=== PATIENT | female | born 1975 | race Hispanic/Latino ===

== ENCOUNTER 2018-11-08 16:57 | Emergency (ER) | payer MEDICAID, OTHER ==
[2018-11-08] MEDS ORDERED: IBUPROFEN 600 MG TABLET ONE (17:23)
== END 2018-11-08 17:33 | disposition home or self-care (01) ==
LOC: EDH 16:57
DX: S80.01XA Contusion of right knee, initial encounter (principal); M70.41 Prepatellar bursitis, right knee; Z98.890 Other specified postprocedural states; W51.XXXA Accidental striking against or bumped into by another person, initial encounter; Y93.89 Activity, other specified; Y92.89 Other specified places as the place of occurrence of the external cause; Y99.0 Civilian activity done for income or pay
CPT/HCPCS: 29505; 73562

== ENCOUNTER 2022-05-04 06:19 | Day surgery (SDC) | payer OTHER ==
[2022-05-01 16:14] LABS: BASOPHILS % (AUTO) 0.3 % (0.0-5.0); EOSINOPHILS % (AUTO) 2.7 % (0.0-8.0); HEMATOCRIT 38.5 % (36-48); LYMPHOCYTES % (AUTO) 30.1 % (21.0-51.0); MEAN CORPUSCULAR HEMOGLOBIN 28.5 pg (27.0-33.0); MEAN CORPUSCULAR HGB CONC 32.2 g/dL (32.0-36.0); MEAN CORPUSCULAR VOLUME 88.5 fL (79-99); MONOCYTES % (AUTO) 6.5 % (3.0-13.0); NEUTROPHILS % (AUTO) 60.1 % (40.0-77.0); PLATELET COUNT (AUTO) 326 K/uL (130-400); RED BLOOD CELL COUNT(AUTO) 4.35 MIL/uL (4.00-5.50); RED CELL DISTRIBUTION WIDTH 13.5 % (11.0-15.5); WHITE BLOOD COUNT (AUTO) 7.7 K/uL (4.8-10.8)
[2022-05-03] MEDS: CEFAZOLIN SODIUM 1 GM VIAL IVP SCH (05:00)
[2022-05-03 11:51] VITALS: BP 157/81
[~2022-05-04] VITALS: Ht 165.1 cm; Wt 98.7 kg
[2022-05-04] VITALS (12 sets, daily range): BP systolic 130–149; BP diastolic 70–98
[~2022-05-04 06:19] MED LIST: LAMO100T16 PO; LISI40TA9 PO
[2022-05-04] MEDS ORDERED: LACTATED RINGERS 1000ML 1,000 ML IV ONE (06:38)
[2022-05-04] MEDS ORDERED: SUCCINYLCHOLINE 200MG/10ML SYR ONE (07:30)
[2022-05-04] MEDS ORDERED: PROPOFOL 10 MG/ML 20ML VIAL IV ONE (07:33)
[2022-05-04] MEDS ORDERED: MIDAZOLAM HCL 1 MG/ML 2ML VIAL ONE (07:33)
[2022-05-04] MEDS ORDERED: ROCURONIUM 10MG/1ML SYR 10 MG/ML ML ONE (07:34)
[2022-05-04] MEDS ORDERED: FENTANYL CITRATE PF 50 MCG/1 ML 2ML VIAL ONE (07:34)
[2022-05-04] MEDS: CEFAZOLIN SODIUM 1 GM VIAL IVP SCH (07:46)
[2022-05-04] MEDS ORDERED: GLYCOPYRROLATE 1 MG/5 ML SYRINGE ONE ×2 (08:20→09:02)
[2022-05-04] MEDS ORDERED: NEOSTIGMINE 5MG/5ML SYR IV ONE (08:20)
== END 2022-05-04 10:00 | disposition home or self-care (01) ==
LOC: DAH 06:19
PROVIDERS: ATTEND Obstetrics & Gynecology
DX: N92.0 Excessive and frequent menstruation with regular cycle (principal); N84.0 Polyp of corpus uteri; E66.9 Obesity, unspecified; I10 Essential (primary) hypertension; Z98.51 Tubal ligation status; Z79.899 Other long term (current) drug therapy; Z98.890 Other specified postprocedural states
CPT/HCPCS: 84703; 85025; 86850 ×2; 86900 ×2; 86901 ×2; 87426; 36415 ×2; 58563; A4351; A4606; A4355; J7120; J3010; J0690; J0330; J3490 ×2; J2710; J2250; J2704; A6223; A4215; A4223; A4222; A4221; A4663; J7030; A4600; A4510

== ENCOUNTER 2023-12-27 07:54 | Day surgery (SDC) | payer OTHER ==
[2023-12-25 10:23] LABS: BASOPHILS # (AUTO) 0.02 K/uL (0.00-0.20); BASOPHILS % (AUTO) 0.3 % (0.0-5.0); EOSINOPHILS # (AUTO) 0.16 K/uL (0.00-0.70); EOSINOPHILS % (AUTO) 2.5 % (0.0-8.0); HEMATOCRIT 32.4 % (36-48); IMMATURE GRANULOCYTE ABSOLUTE 0.02 K/uL (0-1); LYMPHOCYTES % (AUTO) 31.6 % (21.0-51.0); MEAN CORPUSCULAR HGB CONC 32.4 g/dL (32.0-36.0); MEAN CORPUSCULAR VOLUME 89.5 fL (79-99); MONOCYTES # (AUTO) 0.3 K/uL (0.1-1.0); MONOCYTES % (AUTO) 4.8 % (3.0-13.0); NEUTROPHILS # (AUTO) 3.8 K/uL (1.8-7.7); NEUTROPHILS % (AUTO) 60.5 % (40.0-77.0); PLATELET COUNT (AUTO) 292 K/uL (130-400); RED BLOOD CELL COUNT(AUTO) 3.62 MIL/uL (4.00-5.50); RED CELL DISTRIBUTION WIDTH 12.7 % (11.0-15.5); WHITE BLOOD COUNT (AUTO) 6.3 K/uL (4.8-10.8)
[2023-12-25 11:07] VITALS: BP 146/75; PULSE 53; RESP 18
[2023-12-27] VITALS (17 sets, daily range): BP systolic 122–146; BP diastolic 56–77; PULSE 51–64; RESP 14–18
[~2023-12-27] VITALS: Ht 165.1 cm; Wt 95.0 kg
[~2023-12-27 07:54] MED LIST changes: -LISI40TA9 PO; +mvi PO
[2023-12-27] MEDS ORDERED: LIDOCAINE PF 100MG/5ML (2%) SYRINGE 5ML ONE (08:55)
[2023-12-27] MEDS ORDERED: DEXAMETHASONE SOD PHOSPHATE 10MG/ML 1ML VIAL ONE (08:55)
[2023-12-27] MEDS ORDERED: GLYCOPYRROLATE 0.2 MG/ML 5 ML VIAL ONE (08:56)
[2023-12-27] MEDS ORDERED: NEOSTIGMINE METHYLSULFATE 1MG/ML IV ONE (08:56)
[2023-12-27] MEDS ORDERED: MIDAZOLAM HCL 1 MG/ML 2ML VIAL ONE (08:56)
[2023-12-27] MEDS ORDERED: PROPOFOL 10 MG/ML 20ML VIAL IV ONE (08:57)
[2023-12-27] MEDS ORDERED: ROCURONIUM BROMIDE 10MG/1ML 5ML VL ONE (08:57)
[2023-12-27] MEDS: CEFAZOLIN SODIUM 2 GM VIAL ONE (09:18)
[2023-12-27] MEDS ORDERED: MEPERIDINE-PF 25 MG/ML SYG ONE (09:51)
[2023-12-27] MEDS: LACTATED RINGERS 1000ML 1,000 ML IV ONE (11:06)
== END 2023-12-27 11:35 | disposition home or self-care (01) ==
LOC: DAH 07:54
PROVIDERS: ATTEND Obstetrics & Gynecology
DX: N85.7 Hematometra (principal); N94.5 Secondary dysmenorrhea; E66.9 Obesity, unspecified; R56.9 Unspecified convulsions; Z98.890 Other specified postprocedural states; Z98.51 Tubal ligation status; Z98.891 History of uterine scar from previous surgery; Z68.34 Body mass index [BMI] 34.0-34.9, adult
CPT/HCPCS: 84703; 85025; 86850; 86900; 86901; 36415; 58558; 88305; A6260; A4663; A4351; A4606; A4355; J7120; J1100; J3490 ×2; J2001; J2250; J2704; J2710; J2175; J0690; A4930; A4215 ×2; A4223; A4213; A4222; A4221; J7030; A4600; A4510

== ENCOUNTER 2024-03-05 15:00 | Inpatient (IN) | payer OTHER ==
[~2024-03-05] VITALS: Ht 165.1 cm; Wt 96.2 kg
[2024-03-05 09:21] LABS: BASOPHILS # (AUTO) 0.03 K/uL (0.00-0.20); BASOPHILS % (AUTO) 0.4 % (0.0-5.0); EOSINOPHILS % (AUTO) 2.9 % (0.0-8.0); HEMATOCRIT 38.3 % (36-48); IMMATURE GRANULOCYTE ABSOLUTE 0.01 K/uL (0-1); LYMPHOCYTES # (AUTO) 2.4 K/uL (1.0-4.8); LYMPHOCYTES % (AUTO) 35.2 % (21.0-51.0); MEAN CORPUSCULAR HEMOGLOBIN 29.3 pg (27.0-33.0); MEAN CORPUSCULAR HGB CONC 33.2 g/dL (32.0-36.0); MEAN CORPUSCULAR VOLUME 88.2 fL (79-99); MONOCYTES # (AUTO) 0.4 K/uL (0.1-1.0); MONOCYTES % (AUTO) 6.5 % (3.0-13.0); NEUTROPHILS # (AUTO) 3.7 K/uL (1.8-7.7); NEUTROPHILS % (AUTO) 54.9 % (40.0-77.0); PLATELET COUNT (AUTO) 307 K/uL (130-400); RED BLOOD CELL COUNT(AUTO) 4.34 MIL/uL (4.00-5.50); RED CELL DISTRIBUTION WIDTH 12.2 % (11.0-15.5); WHITE BLOOD COUNT (AUTO) 6.8 K/uL (4.8-10.8)
[2024-03-05 10:00] VITALS: BP 119/65; PULSE 61; RESP 18
[~2024-03-05 15:00] MED LIST changes: +CHLO25TA3 PO; +CHOL100053 PO; +IBUP-2077 PO
[2024-03-06] VITALS (23 sets, daily range): BP systolic 115–155; BP diastolic 58–81; PULSE 47–64; RESP 14–20
[2024-03-06 06:30] LABS: CREATININE 0.7 mg/dL (0.5-1.0); POTASSIUM 3.1 mmol/L (3.5-5.1)
[2024-03-06] MEDS: LACTATED RINGERS 1000ML 1,000 ML IV ONE (07:15)
[2024-03-06] MEDS: CEFAZOLIN SODIUM 2 GM VIAL ONE (07:15)
[2024-03-06] MEDS ORDERED: HYDROMORPHONE 1 MG INJ ONE (07:16)
[2024-03-06] MEDS ORDERED: FAMOTIDINE 20MG VIAL IV ONE (07:16)
[2024-03-06] MEDS ORDERED: PHENYLEPHRINE HCL 10 MG/ML 1ML VIAL IV ONE (07:21)
[2024-03-06] MEDS ORDERED: ONDANSETRON 4MG INJ ONE ×2 (07:24→09:43)
[2024-03-06] MEDS ORDERED: FENTANYL CITRATE PF 50 MCG/1 ML 2ML VIAL ONE (07:24)
[2024-03-06] MEDS ORDERED: GLYCOPYRROLATE 0.2 MG/ML 5 ML VIAL ONE (07:24)
[2024-03-06] MEDS ORDERED: PROPOFOL 10 MG/ML 20ML VIAL IV ONE ×2 (07:24→09:46)
[2024-03-06] MEDS ORDERED: MIDAZOLAM HCL 1 MG/ML 2ML VIAL ONE (07:24)
[2024-03-06] MEDS ORDERED: ROCURONIUM BROMIDE 10MG/1ML 5ML VL ONE (07:24)
[2024-03-06] MEDS ORDERED: MORPHINE PF 100MG/10ML AMP IV ONE (07:31)
[2024-03-06] MEDS ORDERED: FENTANYL CITRATE PF 50 MCG/1 ML 5ML AMP IV ONE (07:54)
[2024-03-06] MEDS: CEFAZOLIN SODIUM 2 GM VIAL IVPB ONE (08:02)
[2024-03-06] MEDS ORDERED: SUGAMMADEX SODIUM 200 MG/2 ML VIAL IV ONE (10:13)
[2024-03-06] MEDS ORDERED: 0.9%NACL 10ML VIAL IVP PRN (10:30)
[2024-03-06] MEDS ORDERED: HYDROMORPH /0.9% NACL/PF PCA 50 ML IV ONE (10:47)
[2024-03-06] MEDS: HYDROMORPHONE 1 MG INJ ONE (11:00)
[2024-03-06] MEDS ORDERED: PROMETHAZINE HCL 25 MG/ML 1ML AMPULE IM ONE (11:42)
[2024-03-06] MEDS ORDERED: MEPERIDINE-PF 75 MG/ML SYG ONE (11:42)
[2024-03-06] MEDS: PROMETHAZINE HCL 25 MG/ML 1ML AMPULE IM PRN (11:48)
[2024-03-06] MEDS: MEPERIDINE-PF 75 MG/ML SYG IM PRN (11:49)
[2024-03-06] MEDS: DEXTROSE 5 %-0.45 % NACL 1,000 ML IV PRN (15:37)
[2024-03-06] MEDS: CALDOLOR 800MG+NS 250ML 250 ML IV SCH (18:41)
[2024-03-07] VITALS (7 sets, daily range): BP systolic 104–127; BP diastolic 56–70; PULSE 61–96; RESP 18–20; TEMP 99.2
[2024-03-07] MEDS ORDERED: ACETAMINOPHEN WITH CODEINE 1 TAB TAB PO PRN (03:00)
[2024-03-07] MEDS ORDERED: IBUPROFEN 800 MG TAB PO PRN ×2 (03:00→04:45)
[2024-03-07 06:43] LABS: HEMATOCRIT 34.8 % (36-48); MEAN CORPUSCULAR HEMOGLOBIN 28.9 pg (27.0-33.0); MEAN CORPUSCULAR HGB CONC 32.8 g/dL (32.0-36.0); MEAN CORPUSCULAR VOLUME 88.3 fL (79-99); RED BLOOD CELL COUNT(AUTO) 3.94 MIL/uL (4.00-5.50); RED CELL DISTRIBUTION WIDTH 12.5 % (11.0-15.5); WHITE BLOOD COUNT (AUTO) 9.7 K/uL (4.8-10.8)
[2024-03-07] MEDS: HYDROCODONE/ACETAMINOPHEN 5/325 MG TAB PO PRN (08:31)
[2024-03-07] MEDS: DOCUSATE SODIUM 100 MG CAP PO PRN (10:53)
[2024-03-07] MEDS: ACETAMINOPHEN 500 MG TABLET PO PRN (17:25)
[2024-03-07] MEDS: IBUPROFEN 800 MG TAB PO SCH (18:48)
[2024-03-08 03:37] VITALS: BP 100/55; PULSE 59; RESP 20
[2024-03-08 07:45] VITALS: BP 122/63; PULSE 58; RESP 20
[2024-03-08] MEDS: SIMETHICONE 80 MG TAB.CHEW PO PRN (09:55)
[2024-03-08 11:45] VITALS: BP 114/73; PULSE 62; RESP 18
== END 2024-03-08 12:45 | disposition home or self-care (01) | DRG 743 ==
LOC: OBSVTOIN 03-06 05:58 → DAHIP 03-06 05:58 → INTOOBSV 03-06 05:58 → WSH 03-06 11:30
PROVIDERS: ADMIT Obstetrics & Gynecology; ATTEND Obstetrics & Gynecology
PROC: 0UT50ZZ Resection of Right Fallopian Tube, Open Approach (ICD-10-PCS; 2024-03-06)
PROC: 0UT00ZZ Resection of Right Ovary, Open Approach (ICD-10-PCS; 2024-03-06)
PROC: 0UT90ZZ Resection of Uterus, Open Approach (ICD-10-PCS; principal; 2024-03-06 07:49)
DX: N94.5 Secondary dysmenorrhea (principal); N85.7 Hematometra; E66.9 Obesity, unspecified; G40.909 Epilepsy, unspecified, not intractable, without status epilepticus; Z68.35 Body mass index [BMI] 35.0-35.9, adult
CPT/HCPCS: 36415; 80048; 84703; 85025; 85027; 86850; 86900; 86901; A4344; G0378; J1170; J1741; J2175; J2250; J2274; J2371; J2405; J2550; J2704; J3010; J3490; J7030; J7120; A4215; A4221; A4222; A4223; A4510; A4600; A4649; A4663; A6260; G0168; J0690